=== PATIENT | female | born 1960 | race Two or more races ===

== ENCOUNTER 2019-02-25 11:10 | Emergency (ER) | payer OTHER ==
[~2019-02-25] VITALS: Ht 162.6 cm; Wt 77.1 kg
[~2019-02-25 11:10] MED LIST: LEVOXYL88 MCG; PRAVASTATIN SOD40 MG
[2019-02-25] MEDS ORDERED: SYNTHROID100 MCG (11:23)
[2019-02-25] MEDS ORDERED: TENORMIN25 MG (11:23)
== END 2019-02-25 20:18 | disposition home or self-care (01) ==
LOC: ER 11:10
DX: K59.09 Other constipation (principal); R10.32 Left lower quadrant pain